=== PATIENT | male | born 1940 | race Caucasian/White ===

== ENCOUNTER 2018-09-18 10:45 | Inpatient (IN) ==
[2018-09-10 13:07] LABS: Appearance,Urine CLEAR; Bilirubin,Urine NEG (NEG); Color,Urine STRAW; Culture Indicated,Urine NO; Glucose,Urine (UA) NEGATIVE (NEG); Ketones,Urine NEG (NEG); Leukocyte Esterase,Urine NEG /uL (NEG); Nitrate,Urine NEG (NEG); Protein,Urine NEG (NEG); Specific Gravity,Urine 1.004 (1.000-1.035); Urine Blood NEG mg/dL (<0.03); Urobilinogen,Urine NEG (NEG)
[2018-09-10 15:41] LABS: Basophils # (Auto) 0.1 K/mcL (0.0-0.3); Basophils % (Auto) 0.9 % (0.0-2.0); Eosinophils # (Auto) 0.4 K/mcL (0.0-0.7); Eosinophils % (Auto) 5.5 % (0.0-7.0); Hematocrit 43.7 % (41.0-55.0); Hemoglobin 14.1 g/dL (13.5-16.5); Lymphocytes # (Auto) 1.9 K/mcL (1.5-4.8); Lymphocytes % (Auto) 23.6 % (15.5-49.0); Mean Cell Volume 98.7 fL (80.0-100.0); Mean Corpuscular HGB Conc 32.4 g/dL (31.0-36.0); Mean Platelet Volume 11.5 fL (7.4-10.4); Monocytes # (Auto) 0.6 K/mcL (0.1-0.9); Platelet Count 173 K/mcL (140-440); RBC 4.43 M/mcL (4.50-5.90); WBC 8.1 K/mcL (4.5-11.0)
[2018-09-10 15:46] LABS: Blood Urea Nitrogen 13 mg/dl (8-23); Calcium 9.3 mg/dl (8.6-10.4); Carbon Dioxide 27 mmol/L (22-30); Chloride 100 mmol/L (96-108); Glomerular Filtration Rate 85; Glucose 91 mg/dL (70-105)
[2018-09-10 15:57] LABS: Prothrombin Time 13.1 sec (11.9-14.5)
[~2018-09-18 10:45] MED LIST: CELECOXIB 200 MG CAPSULE PO SCH; PREGABALIN 75 MG CAPSULE PO SCH; ceFAZolin 2 GM in DEXTROSE 5% IN WATER 50 ML IV SCH; oxyCODONE 10 MG TAB.ER.12H PO SCH
[2018-09-18] MEDS ORDERED: SCOPOLAMINE 1 PATCH PATCH TOPICAL PRN (11:00)
[2018-09-18] MEDS ORDERED: IPRATROPIUM/ALBUTEROL 3 ML AMPUL.NEB NEB PRN ×2 (11:00→16:06)
[2018-09-18] MEDS ORDERED: DEXAMETHASONE 10 MG/ML VIAL ONE (14:25)
[2018-09-18] MEDS ORDERED: ePHEDrine 50 MG/ML AMPUL IV ONE (14:25)
[2018-09-18] MEDS ORDERED: MIDAZOLAM 5 MG/5 ML VIAL ONE (14:25)
[2018-09-18] MEDS ORDERED: fentaNYL 100 MCG/2 ML VIAL IV ONE ×2 (14:25→16:01)
[2018-09-18] MEDS ORDERED: ONDANSETRON 4 MG/2 ML VIAL ONE (14:25)
[2018-09-18] MEDS ORDERED: SUCCINYLCHOLINE 20 MG/ML ML IV ONE (14:25)
[2018-09-18] MEDS ORDERED: PROPOFOL 200 MG/20 ML VIAL IV ONE (14:25)
[2018-09-18] MEDS ORDERED: PHENYLEPHRINE 10 MG/ML VIAL ONE (14:25)
[2018-09-18] MEDS ORDERED: LIDOCAINE HCL/PF 100 MG/5 ML SYRINGE IV ONE (14:25)
--- NOTE | 2018-09-18 15:39 | Brief Operative Note ---
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
--- NOTE | 2018-09-18 15:41 | Discharge Summary ---
Ortho Discharge - TSA - Patient Instructions Diet: Regular Diet Activity: ambulate with assistive device, weight bearing as tolerated, non weight bearing Total Shoulder Protocol: Leave immobilizer in place except for bathing and ROM. Abduction pillow. Continue to wear sling until seen by physician. Codman Pendulum : These exercises use momentum produced by your body to move your shoulder joint. Bend your knees and shift your weight to your front leg, then back, allowing your arm to swing in the same directions. Using the same technique, alternately shift your weight between your right and left legs, allowing your arm to swing from side to side. These exercises are also performed in counterclockwise and clockwise circular motions. Typically these exercises are performed several times per day, for a set number repetitions or minutes, such as 20 times in a row or 5 minutes at a time. Dressing Care: May shower in 2 days - Follow Up Plan Follow Up Appointments: Adam Kim PA-C [Physician Fire Investigation Lieutenant] - 10/03/18 8:40 am Disposition: Home, Self-Care Prognosis: Good Rehab Potential: Good I certify that the patient requires SNF services: No Overall status at discharge: patient is progressing back to baseline
[2018-09-18] MEDS ORDERED: MAGNESIUM HYDROXIDE 30 ML ORAL.SUSP PO PRN (15:42)
[2018-09-18] MEDS ORDERED: HYDROcodone/APAP 10/325MG TABLET PO PRN (15:42)
[2018-09-18] MEDS ORDERED: BISACODYL 10 MG SUPP.RECT PR PRN (15:42)
[2018-09-18] MEDS ORDERED: TRANEXAMIC ACID 1,000 MG/10 ML VIAL IV SCH (15:42)
[2018-09-18] MEDS ORDERED: FLEETS ADULT ENEMA PR PRN (15:42)
[2018-09-18] MEDS ORDERED: BENZOCAINE/MENTHOL 1 LOZENGE PO PRN (15:42)
[2018-09-18] MEDS ORDERED: ONDANSETRON 4 MG ODT TABLET SL PRN (15:42)
[2018-09-18] MEDS ORDERED: POLYETHYLENE GLYCOL 3350 17 GM PACKET PO PRN (15:42)
[2018-09-18] MEDS ORDERED: ONDANSETRON 4 MG/2 ML VIAL IV PRN ×2 (15:42→16:06)
[2018-09-18] MEDS ORDERED: METHOCARBAMOL 750 MG TABLET PO PRN (15:42)
[2018-09-18] MEDS ORDERED: KETOROLAC 15 MG/ML VIAL IV PRN (15:42)
[2018-09-18] MEDS ORDERED: ACETAMINOPHEN 1,000 MG/100 ML BOTTLE IV ONE (16:06)
[2018-09-18] MEDS ORDERED: ePHEDrine 50 MG/ML AMPUL IV PRN (16:06)
[2018-09-18] MEDS ORDERED: FLUMAZENIL 0.1 MG/ML ML IV PRN (16:06)
[2018-09-18] MEDS ORDERED: METHOCARBAMOL 1,000 MG/10 ML VIAL IV PRN (16:06)
[2018-09-18] MEDS ORDERED: NALOXONE HCL 0.4 MG/ML VIAL IV PRN (16:06)
[2018-09-18] MEDS ORDERED: diphenhydrAMINE 50 MG/ML VIAL IV PRN (16:06)
[2018-09-18] MEDS ORDERED: MEPERIDINE 25 MG/ML SYRINGE IV PRN (16:06)
[2018-09-18] MEDS ORDERED: PROMETHAZINE 25 MG/ML VIAL IV PRN (16:06)
[2018-09-18] MEDS ORDERED: fentaNYL 100 MCG/2 ML VIAL IV PRN (16:06)
[2018-09-18] MEDS ORDERED: ATROPINE SULFATE 0.4 MG/ML VIAL IV PRN (16:06)
[2018-09-18] MEDS ORDERED: METOPROLOL TARTRATE 5 MG/5 ML VIAL IV PRN (16:06)
[2018-09-18] MEDS ORDERED: GENTAMICIN SULFATE 800 MG/20 ML VIAL IR ONE (16:14)
[2018-09-18] MEDS ORDERED: LACTATED RINGERS 1,000 ML IV SCH (16:15)
[2018-09-18] MEDS: 0.9 % SODIUM CHLORIDE 1,000 ML IV SCH ×2 (17:00→23:47)
--- NOTE | 2018-09-18 17:06 | XRay Report ---
CLINICAL INFORMATION: Post-Op Total Shoulder COMPARISON: None. FINDINGS: Left total shoulder prosthesis is anatomically aligned. No osseous abnormality. Soft tissue swelling in the IMPRESSION: Negative Interpreted and Authenticated by: Caleb Carroll 09/18/18
[2018-09-18] MEDS: CARVEDILOL 12.5 MG TABLET PO SCH (20:04)
[2018-09-18] MEDS ORDERED: SENNOSIDES 1 TABLET PO SCH (21:00)
[2018-09-18] MEDS: DOCUSATE SODIUM 100 MG CAPSULE PO SCH (22:27)
[2018-09-18] MEDS: ceFAZolin 1 GM VIAL IV SCH (22:27)
[2018-09-18] MEDS: 0.9 % SODIUM CHLORIDE 10 ML SYRINGE IV SCH (23:46)
[2018-09-19] MEDS: ceFAZolin 1 GM VIAL IV SCH (04:44)
[2018-09-19] MEDS: 0.9 % SODIUM CHLORIDE 10 ML SYRINGE IV SCH (04:44)
[2018-09-19 06:51] LABS: Hematocrit 38.9 % (41.0-55.0); Hemoglobin 13.2 g/dL (13.5-16.5)
--- NOTE | 2018-09-19 07:09 | Operative Note ---
DATE OF OPERATION: 09/18/2018 PREOPERATIVE DIAGNOSIS: Left shoulder5 rotator cuff tear arthropathy. POSTOPERATIVE DIAGNOSIS: Left shoulder rotator cuff tear arthropathy. PROCEDURE: Left reverse total shoulder arthroplasty. SURGEON: Lorena Robles M.D. REPORT SPECIALIST SURGEON: Debbie Stoll PA-C. This provider's expertise and technical skill were required throughout the case. The [facility] assisted with preoperative coordination, intraoperative retraction, wound closure, dressing and splint application, as well as postoperative documentation and care coordination. ANESTHESIA: General. ESTIMATED BLOOD LOSS: 150 mL COMPLICATIONS: None noted. SPECIMENS REMOVED: None. DRAINS: None. IMPLANTS: [employer] Delta Xtend WILKINSON coated cementless metaglene; [employer] Delta thin locking metaglene screw 4 x 5 x 30 x2; non-locking metaglene screw 4.5 x 18 x2; [employer] Delta Xtend glenosphere standard 38 mm, [employer] Delta Xtend modular humeral stem size 12 WILKINSON coated cementless; [employer] Delta Xtend modular eccentric epiphysis size 1 left WILKINSON coated cementless; De[employer]uy Delta Xtend humeral polyethylene cup 38 +3 standard. INDICATIONS: The patient has had a longstanding history of worsening pain in the shoulder that has failed conservative treatment. Radiographs have confirmed advanced degenerative joint disease and a failed rotator cuff. After a long discussion about treatment options, the patient elected to proceed with a reverse total shoulder arthroplasty. The risks and benefits were discussed with the patient in detail including, but not limited to, the risks of anesthesia, problems with the heart or lungs related to anesthesia, infection, compromise or injury to the nerves and blood vessels, deep venous thrombosis, pulmonary embolism, pneumonia, continued pain after surgery, worsening pain or symptoms after surgery, swelling, loss of motion, instability, fracture, arm length discrepancy, and need for repeat surgery. DESCRIPTION OF PROCEDURE: The patient was seen in the pre-anesthesia waiting room where all questions were answered and the correct side and site were identified and marked. The patient was transferred to the operating room and administered the anesthetic and given preoperative antibiotics. A timeout was then called. The patient was placed in the modified beach chair position with all prominences well padded. The extremity was prepped and draped from the fingers up to the neck. A standard deltopectoral skin incision was created. Dissection was carried down to the deltopectoral groove and the cephalic vein was isolated medially and retracted laterally with the deltoid. Retractors were placed and the coracobrachialis was split up to the coracoacromial ligament allowing retraction of the conjoined tendon. We split the subscapularis 1 cm medial to the bicipital groove and extended the split into the rotator interval. This was tagged for later repair. The supraspinatus and infraspinatus had been previously torn and retracted. The biceps was found to be previously ruptured and not present in the intertubercular groove. A capsular release was performed in a posterior subperiosteal direction along the humerus. The humeral head was then dislocated. We established intramedullary access and hand reamed up to get good cortical chatter with the [employer] Delta XTEND reverse total shoulder instrumentation. We then used the intramedullary guide and set to about 5 degrees of retroversion. The proximal humerus cut was performed and osteophytes were removed. A metal protector plate was then placed. Attention was then turned to the glenoid. Retractors were placed for optimal visualization and the labrum was excised in its entirety. A centralizing Steinmann pin was placed just into the posterior inferior quadrant in a standard fashion. We reamed over the pin to remove all the cartilage and get to a good base for the prosthesis. The drill was then placed over for the central peg. A cementless Metaglene was then impacted into place. We then drilled, measured, and placed the four screws starting inferior, then superior, then anterior, and finally posterior. The superior locking screw was lined up at the base of the coracoid process. We then impacted the head onto the Metaglene and tightened down in a standard fashion. Attention was then turned back to the humerus. Proximal reaming was performed off the intramedullary guide into the humeral head, using the eccentric guide to allow best coverage. We again set version and broached up to a stable implant. Trials were placed and good tension, motion, and stability were obtained at this point. Trials were removed and the final press fit femoral prosthesis was impacted into place with measured version. The final polyethylene was placed and the shoulder was reduced and again checked for motion, tension, and stability. We irrigated with 3 liters of antibiotic saline and closed the subscapularis with # 2 FiberWire. We irrigated again and closed the deltopectoral interval with several # 0 Vicryl figure of eight sutures. The subcutaneous layer was closed with 2-0 Vicryl and the skin was closed with 4-0 Monocryl in a subcuticular fashion. A sterile pressure dressing was applied and the patient was placed into an abduction sling. All needle and sponge counts were correct. The patient was transferred to the recovery room in stable condition. JMervat:abril Job ID: [id number] Doc ID: [id number] Lorena Robles MD
[2018-09-19] MEDS ORDERED: OMEPRAZOLE 20 MG CAPSULE PO SCH (07:30)
--- NOTE | 2018-09-19 07:51 | Orthopedic Progress Note ---
Subjective Patient information: Note initiated : 09/19/18 at 7:50 am Service Date, if different from initiated Date: [] Patient: Hernan Virgen 77 y/o M admitted on 09/18/18 for Left Reverse Total Shoulder Arthroplasty No Biceps. Chief Complaint: [] Interval history: doing well no complaints Objective Vital signs: Vital Signs Temp Pulse Resp BP Pulse Ox 09/19/18 03:16 97.6 F 65 14 127/74 94 09/18/18 23:06 97.9 F 89 14 141/77 94 09/18/18 20:30 98.0 F 63 14 125/74 97 09/18/18 20:00 75 127/98 96 09/18/18 19:30 55 L 129/72 09/18/18 19:00 57 L 123/70 09/18/18 18:30 56 L 139/81 09/18/18 18:13 54 L 155/75 09/18/18 18:00 54 L 14 155/75 98 09/18/18 17:30 58 L 140/68 09/18/18 17:15 55 L 141/72 09/18/18 17:00 62 150/92 09/18/18 16:45 62 135/81 09/18/18 16:25 65 19 148/77 99 09/18/18 16:10 96.9 F L 73 13 132/91 94 09/18/18 16:05 74 19 169/80 93 09/18/18 16:00 78 19 162/106 100 09/18/18 15:55 78 18 170/92 98 09/18/18 15:52 97.3 F 78 18 170/83 98 09/18/18 11:20 98.2 F 68 18 122/71 95 Intake and Output 09/18/18 09/19/18 09/19/18 21:59 05:59 13:59 Intake Total 2400 2048 Output Total 150 325 Balance 2250 1723 Intake: IV 848 Sodium Chloride 0.9% 1,000 ml @ 848 125 mls/hr IV .Q8H [facility] Rx#: [id number] Oral 600 1200 IV - Manual Only 1800 Output: Void Amount 150 325 Other: Meal Dinner Percent of Meal Consumed 100% Feeding Ability Independent Urine Appearance Clear Clear Urine Color Bright Yellow Bright Yellow Urine Odor Normal Normal # Voids 1 Weight 158 lb Intake & Output: Intake & Output 09/18/18 09/19/18 09/19/18 21:59 05:59 13:59 Intake Total 2400 2048 Output Total 150 325 Balance 2250 1723 Weight 158 lb Intake: IV 848 Sodium Chloride 0.9% 1,000 ml @ 848 125 mls/hr IV .Q8H [facility] Rx#: [id number] Oral 600 1200 IV - Manual Only 1800 Output: Void Amount 150 325 Other: Meal Dinner Percent of Meal Consumed 100% Feeding Ability Independent Urine Appearance Clear Clear Urine Color Bright Yellow Bright Yellow Urine Odor Normal Normal # Voids 1 Incision: Yes healing Incision clean and dry: Yes Dressing: Yes clean, Yes dry, Yes intact Weight bearing status: non Neurological exam IM: Yes alert, Yes oriented X3, Yes motor sensory intact, Yes neurovascular intact Extremities exam IM: No calf tenderness, Yes neurovascular intact - Labs CBC & BMP: 09/19/18 04:10 09/10/18 11:07 Labs: Orthopedic Labs 09/10/18 11:07 PT 13.1 INR 1.0 09/19/18 09/10/18 04:10 11:07 Hgb 13.2 L 14.1 Hct 38.9 L 43.7 Assessment and Plan (1) Osteoarthritis, shoulder pod 1 s/p reverse tsa sling pain control dvt prophylaxis d/c planning Status: Acute
[2018-09-19] MEDS: CARVEDILOL 12.5 MG TABLET PO SCH (08:00)
[2018-09-19] MEDS: DOCUSATE SODIUM 100 MG CAPSULE PO SCH (08:00)
[2018-09-19] MEDS: 0.9 % SODIUM CHLORIDE 1,000 ML IV SCH (08:02)
[2018-09-19] MEDS ORDERED: ASPIRIN 81 MG TAB.CHEW PO SCH (09:00)
== END 2018-09-19 11:26 | disposition home or self-care (01) | DRG 483 ==
LOC: MEDSUR 10:45
PROVIDERS: ADMIT Orthopaedic Surgery Sports Medicine; ATTEND Orthopaedic Surgery Sports Medicine